=== PATIENT | male | born 1980 | race Caucasian/White ===

== ENCOUNTER 2017-02-19 11:47 | Emergency (ER) | payer OTHER ==
[2017-02-19] MEDS ORDERED: ORPHENADRINE 30 MG/ML 2 ML VIAL IM STA (13:10)
[2017-02-19] MEDS ORDERED: HYDROcodone/APAP 5-325MG 1 EACH TAB PO STA (13:13)
--- NOTE | 2017-02-19 13:18 | ED ---
General Adult HPI - General Chief complaint: Back Pain/Injury Stated complaint: BACK INJURY, [facility] Time Seen by Provider: 02/19/17 13:02 Source: patient, RN notes reviewed Mode of arrival: wheelchair Limitations: no limitations - History of Present Illness Initial comments: This is a 36-year-old male who presents with back pain after turning a 400 pound barrel. Patient states he felt pain in his back as soon as he turned the barrel. Patient states it hurts to stand up straight. Patient states the pain is also made worse in the middle back with flexion of the head. Patient denies any neck pain. Patient states he's been ambulating but this is painful. Patient denies any radicular pain, numbness/tingling/weakness. Patient denies any change in bowel or bladder function or loss of sensation to the saddle area. Patient also states he's had a cough for about a week productive of yellow sputum. Patient also admits to some congestion and mild intermittent headache. Patient also admits to tobacco use. Patient denies any sore throat or fever/chills. Patient denies any shortness of breath. Patient denies any recent chest pain, abdominal pain, nausea/vomiting/diarrhea, hematuria, headache, or visual changes, or any other complaints. - Related Data Previous Rx's Medication Instructions Recorded Cyclobenzaprine [Flexeril] 5 mg PO HS #3 tab 02/19/17 HYDROcodone/APAP 5-325MG [[place] 1 tab PO Q6HR #12 tab 02/19/17 5-325] Allergies Allergy/AdvReac Type Severity Reaction Status Date / Time codeine Allergy Unknown Verified 02/19/17 12:38 Childhood NSAIDS (Non-Steroidal Allergy Swelling Verified 02/19/17 12:38 Anti-Inflamma Penicillins Allergy Unknown Verified 02/19/17 12:38 Childhood Review of Systems ROS Statement: Those systems with pertinent positive or pertinent negative responses have been documented in the HPI. ROS Other: All systems not noted in ROS Statement are negative. Past Medical History Past Medical History: No Reported History History of Any Multi-Drug Resistant Organisms: None Reported Past Surgical History: No Surgical Hx Reported Past Psychological History: No Psychological Hx Reported Smoking Status: Current every day smoker Past Alcohol Use History: None Reported Past Drug Use History: None Reported General Exam - General Exam Comments Initial Comments: General: The patient is awake and alert, in no distress, and does not appear acutely ill. Neck: The neck is supple, there is no tenderness or JVD. Cardiovascular: There is a regular rate and rhythm. No murmur, rub or gallop is appreciated. Respiratory: Faint scattered wheezes. Otherwise lungs are clear to auscultation, respirations are non-labored, breath sounds are equal. No stridor , rales, or rhonchi. Musculoskeletal: Patient is tender to palpation over the midthoracic left side paraspinal muscles. Patient is not tender directly over the thoracic spine, cervical spine or lumbar spine. Patient has full range of motion, strength 5/5 and Sensation intact. Radial pulses 2+ bilaterally. Neurological: A&O x 3. CN II-XII intact, There are no obvious motor or sensory deficits. Coordination appears grossly intact. Speech is normal. Skin: Skin is warm and dry and no rashes or lesions are noted. Psychiatric: Normal mood and affect. Limitations: no limitations Course Vital Signs 02/19/17 12:34 Temperature 97.1 F L Pulse Rate 66 Respiratory 16 Rate Blood Pressure 150/63 O2 Sat by Pulse 95 Oximetry Medical Decision Making - Medical Decision Making This is a well-appearing 36-year-old male who presents with mid back pain after twisting a heavy barrel. On physical exam patient is neurologically intact. Patient's back pain is reproducible. Patient is tender to palpation over the midthoracic left side paraspinal muscles. Patient is not tender directly over the thoracic spine, cervical spine or lumbar spine. Patient has full range of motion, strength 5/5 and Sensation intact. Radial pulses 2+ bilaterally. Faint wheezes heard in bilateral lung freire. Patient is afebrile in the EC. A chest x-ray was done and reviewed showing: No acute cardiopulmonary process. Reported by Dr. Hyman. Patient admits to being a smoker and denies any shortness of breath. X-rays of the thoracic spine were done and reviewed showing: No acute fracture or dislocation is seen in the thoracic spine. Reported by Dr. Hyman. Patient is given Norflex and [place] in the EC. I discussed heating pads and/or ice to the area. I discussed patient will be given a prescription for Flexeril for the next 3 days to take at night. I discussed sedation effects. I discussed Tylenol for pain as patient is ALLERGIC to NSAIDs. I discussed [place] for breakthrough pain. I discussed that [place] has Tylenol in it so that he should watch his dosing of Tylenol if he is going to take [place]. Patient is able to stand and ambulate in the EC. Patient states his pain is improving. I discussed that patient should keep his follow- up appointment with [facility] on Wednesday. I discussed no heavy lifting until pain is improved. I discussed return parameters. Discussed that patient should follow up with PCP in one to 2 days or return to the EC for any worsening symptoms or for any further concerns. Patient was receptive to this plan and patient will be discharged home. Disposition Clinical Impression: Muscle spasm of back Disposition: HOME SELF-CARE Condition: Good Instructions: Acute Low Back Pain (ED) Additional Instructions: Please use Flexeril as prescribed and do not drive or drink alcohol while taking this medication as it can make you drowsy. Please use Tylenol and heating pads for pain. Please do not lift any heavy objects until pain is improved. Please use medication as discussed. Please follow-up with family doctor in the next 2 days of symptoms have not improved. Please return to emergency room if the symptoms increase or worsen or for any other concerns. Prescriptions: Cyclobenzaprine [Flexeril] 5 mg PO HS #3 tab HYDROcodone/APAP 5-325MG [[place] 5-325] 1 tab PO Q6HR #12 tab Referrals: Severino Andre MD [Primary Care Provider] - 1-2 days Time of Disposition: 14:20
--- NOTE | 2017-02-19 13:37 | XR ---
EXAMINATION TYPE: XR chest 2V DATE OF EXAM: 02/19/2017 1:32 PM COMPARISON: 09/20/2013 HISTORY: Chest pain TECHNIQUE: Frontal and lateral views of the chest are obtained. FINDINGS: There is no focal air space opacity. No evidence for pnuemothorax.No pleural effusion. The cardiac silhouette size is within normal limits. The osseous structures are grossly intact. IMPRESSION: 1. No acute cardiopulmonary process.
--- NOTE | 2017-02-19 13:38 | XR ---
EXAMINATION TYPE: XR thoracic spine complete DATE OF EXAM: 02/19/2017 1:32 PM CLINICAL HISTORY: pain TECHNIQUE: Frontal, lateral, and swimmer's view of thoracic spine are obtained. COMPARISON: None. FINDINGS: Thoracic spine show satisfactory alignment without evidence of acute fracture or dislocatio n. Vertebral body heights are preserved. Disc spaces are well preserved. Visualized ribs are unrem arkable. IMPRESSION: No acute fracture or dislocation is seen in the thoracic spine. ICD 10 NO FRACTURE, INIT IAL EVALUATION
[2017-02-19 14:30] VITALS: BP 138/84; PULSE 67; RESP 18; TEMP 98
== END 2017-02-19 14:29 | disposition home or self-care (01) ==
LOC: EC 11:47
DX: M62.830 Muscle spasm of back (principal); R51 Headache; R05 Cough; R09.89 Other specified symptoms and signs involving the circulatory and respiratory systems; F17.200 Nicotine dependence, unspecified, uncomplicated; Z88.0 Allergy status to penicillin; Z88.5 Allergy status to narcotic agent; Z88.6 Allergy status to analgesic agent; X50.9XXA Other and unspecified overexertion or strenuous movements or postures, initial encounter; Y92.69 Other specified industrial and construction area as the place of occurrence of the external cause; Y99.0 Civilian activity done for income or pay
CPT/HCPCS: 71020; 72072; 99283; 96372; J2360

== ENCOUNTER 2018-02-08 16:28 | Emergency (ER) | payer BC, OTHER ==
[2018-02-08] MEDS ORDERED: RX INFO: IV CONTRAST WAS GIVEN 1 EACH MISC MISCELLANE PRN (17:13)
[2018-02-08 17:30] LABS: Basophils # (A) 0.1 k/uL (0-0.2); Basophils % (A) 1 %; Eosinophils # (A) 0.4 k/uL (0-0.7); Eosinophils % (A) 4 %; HCT 45.7 % (39.0-53.0); HGB 15.5 gm/dL (13.0-17.5); Lymphocytes % (A) 19 %; MCV 85.2 fL (80.0-100.0); Mean Platelet Volume 6.9; Monocytes # (A) 0.5 k/uL (0-1.0); Monocytes % (A) 5 %; Neutrophils # (A) 7.2 k/uL (1.3-7.7); Neutrophils % (A) 70 %; Platelet Count 294 k/uL (150-450); RBC 5.36 m/uL (4.30-5.90); WBC 10.2 k/uL (3.8-10.6)
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
--- NOTE | 2018-02-08 18:17 | CT ---
EXAMINATION TYPE: CT facial bones w con DATE OF EXAM: 02/08/2018 COMPARISON: NONE HISTORY: Nasal trauma 3 weeks ago. Possible abscess formation CT DLP: 650 mGycm Automated exposure control for dose reduction was used. CONTRAST: CT scan of the facial bones is performed with IV Contrast, patient injected with 100 mL of Isovue 300 . TECHNIQUE: CT scan of the sinuses is performed without contrast, axial images are obtained, coronal r eformatted images are also reviewed. FINDINGS: There is a comminuted fracture of the maxillary spine with overlying soft tissue swelling. No fluid collection to suggest abscess formation. The nasal bone and nasal septum are intact. Moderat e mucosal thickening is seen of the ethmoid sinuses. Scant mucosal thickening is noted of the maxilla ry sinuses. Scant mucosal thickening is also seen of the sphenoid sinus and frontal sinuses. Right ma stoid air cells are well aerated. Left mastoid air cells are hypoplastic. Lamina Propecia are intact. Evaluation of the intracranial structures is limited. Globes are symmetric. Extraocular muscles are also symmetric. Lenses are in place. Oropharynx and nasopharynx are patent. Parotids and submandibula r glands are symmetric. IMPRESSION: Comminuted fracture of the maxillary spine with overlying soft tissue swelling. No fluid collection t o suggest abscess.
[2018-02-08 19:41] VITALS: BP 134/81; PULSE 63; RESP 18; TEMP 98.6
== END 2018-02-08 19:41 | disposition home or self-care (01) ==
LOC: EC 16:28
DX: S02.402A Zygomatic fracture, unspecified side, initial encounter for closed fracture (principal); L08.9 Local infection of the skin and subcutaneous tissue, unspecified; K08.409 Partial loss of teeth, unspecified cause, unspecified class; F17.200 Nicotine dependence, unspecified, uncomplicated; Z88.0 Allergy status to penicillin; Z88.5 Allergy status to narcotic agent; Z88.6 Allergy status to analgesic agent; X58.XXXA Exposure to other specified factors, initial encounter
CPT/HCPCS: 36415; 85025; 87040; 70487; 99283; Q9967

== ENCOUNTER → 2019-05-30 | Outpatient (CLI) | payer OTHER ==
--- NOTE | 2019-05-30 16:23 | XR ---
EXAMINATION TYPE: XR knee complete LT DATE OF EXAM: 05/30/2019 COMPARISON: NONE HISTORY: 38-year-old male [id number] TECHNIQUE: 3 views FINDINGS: There is severe prepatellar soft tissue swelling. Underlying trace knee joint effusion. Extensor mech anism is intact. No acute fracture, subluxation, or dislocation. IMPRESSION: Marked prepatellar soft tissue swelling suggest contusion or hemorrhagic prepatellar bursitis in the setting of injury. No underlying acute osseous abnormality seen.
== END | disposition home or self-care (01) ==
LOC: RADXRMAIN 12:46
PROVIDERS: ATTEND Emergency Medicine
DX: M79.89 Other specified soft tissue disorders (principal)

== ENCOUNTER 2020-12-31 01:30 | Inpatient (IN) | payer BC ==
[2020-12-31] MEDS ORDERED: NITROGLYCERIN SL TABS 0.4 MG TAB SUBLINGUAL PRN (01:33)
[2020-12-31 01:36] LABS: Glucose,Whole Blood 148 mg/dL (75-99)
[2020-12-31] MEDS ORDERED: ATORVASTATIN 80 MG TAB PO STA (01:37)
[2020-12-31] MEDS ORDERED: HEPARIN SODIUM,PORCINE 5,000 UNIT/ML 1 ML VIAL SQ STA (01:38)
--- NOTE | 2020-12-31 01:38 | ED ---
Chest Pain HPI - General Chief Complaint: Chest Pain Stated Complaint: STEMI Time Seen by Provider: 12/31/20 01:33 Source: patient, EMS Mode of arrival: EMS - History of Present Illness Initial Comments: This patient is a 40-year-old man brought by an os to be evaluated for chest pain. The patient's symptoms started at approximately midnight. He noticed a substernal pressure moderate to severe intensity. Patient also having nausea and dyspnea. EMS was activated and then called and the patient here as ST elevation DC. Patient denies previous history of cardiac disease. Patient does smoke. MD Complaint: chest pain Onset/Timin -: minutes(s) Onset: during rest Pain Location: substernal Pain Radiation: LUE Severity: moderate Quality: heaviness Consistency: constant Improves With: nitroglycerin, medication-other Worsens With: nothing Anginal Symptoms: nausea Treatments Prior to Arrival: nitroglycerin, other - Related Data Previous Rx's Medication Instructions Recorded Cyclobenzaprine [Flexeril] 5 mg PO HS #3 tab 02/19/17 HYDROcodone/APAP 5-325MG [[place] 1 tab PO Q6HR #12 tab 02/19/17 5-325] Clindamycin HCl 300 mg PO Q6HR #40 cap 02/08/18 Sulfamethox-Tmp 800-160Mg [Bactrim 1 each PO Q12HR #20 tab 02/08/18 Ds] Allergies Allergy/AdvReac Type Severity Reaction Status Date / Time aspirin Allergy Unknown Verified 12/31/20 02:03 codeine Allergy Unknown Verified 12/31/20 02:04 Childhood NSAIDS (Non-Steroidal Allergy Swelling Verified 12/31/20 02:04 Anti-Inflamma Penicillins Allergy Unknown Verified 12/31/20 02:04 Childhood Review of Systems ROS Statement: Those systems with pertinent positive or pertinent negative responses have been documented in the HPI. ROS Other: All systems not noted in ROS Statement are negative. Constitutional: Denies: fever, chills Respiratory: Reports: dyspnea. Denies: cough Cardiovascular: Reports: chest pain. Denies: palpitations, edema, syncope Gastrointestinal: Reports: nausea. Denies: abdominal pain, vomiting, diarrhea Genitourinary: Denies: dysuria Musculoskeletal: Denies: back pain Skin: Denies: rash Neurological: Denies: headache, weakness, numbness EKG Findings - EKG Results: EKG: interpreted by ATILIO, sinus rhythm (Rate 60 bpm), normal axis - DC, Pacemaker, Normal: Myocardial infarction: septal DC (acute or recent), anterior DC (acute or recent) Past Medical History Past Medical History: No Reported History History of Any Multi-Drug Resistant Organisms: None Reported Past Surgical History: No Surgical Hx Reported Past Psychological History: No Psychological Hx Reported Smoking Status: Current every day smoker Past Alcohol Use History: None Reported Past Drug Use History: None Reported General Exam General appearance: alert, in no apparent distress Head exam: Present: atraumatic, normocephalic Eye exam: Present: normal appearance. Absent: scleral icterus, conjunctival injection ENT exam: Present: normal oropharynx Neck exam: Present: normal inspection, full ROM Respiratory exam: Present: normal lung sounds bilaterally. Absent: respiratory distress, wheezes, rales, rhonchi, stridor Cardiovascular Exam: Present: regular rate, normal rhythm, normal heart sounds. Absent: systolic murmur, diastolic murmur, rubs, gallop GI/Abdominal exam: Present: soft. Absent: distended, tenderness, guarding, rebound, rigid, mass Extremities exam: Present: normal inspection, normal capillary refill. Absent: pedal edema, calf tenderness Back exam: Present: normal inspection. Absent: CVA tenderness (R), CVA tenderness (L) Neurological exam: Present: alert Skin exam: Present: warm, dry, intact, normal color. Absent: rash Course Vital Signs 12/31/20 01:30 Temperature 97.5 F L Pulse Rate 62 Respiratory 18 Rate Blood Pressure 116/84 O2 Sat by Pulse 99 Oximetry - Reevaluation(s) Reevaluation #1: 12/31/20 01:38 Patient's 40-year-old man brought to have evaluation for chest pain. We did receive a call from EMS describing anterior ST elevation DC. I discussed the case with , covering interventional cardiology and the cath team was activated. Chest Pain MDM - [facility] Patient's 40-year-old man brought by ambulance for chest pain. Patient found to have acute STEMI. pharmaceutical laboratory technician had been activated based on the EMS call, and patient sent to [facility] as soon his personnel had arrived. Critical Care Time Critical Care Time: Yes (30 minutes) Disposition Clinical Impression: ST elevation myocardial infarction (STEMI) Disposition: ADMITTED IP TO THIS HOSP Condition: Serious Is patient prescribed a controlled substance at d/c from ED?: No
[2020-12-31 01:53] LABS: Basophils # (A) 0.1 k/uL (0-0.2); Basophils % (A) 0 %; Eosinophils # (A) 0.3 k/uL (0-0.7); Eosinophils % (A) 2 %; HCT 40.9 % (39.0-53.0); HGB 14.3 gm/dL (13.0-17.5); Lymphocytes # (A) 2.1 k/uL (1.0-4.8); Lymphocytes % (A) 13 %; MCH 30.1 pg (25.0-35.0); MCV 86.1 fL (80.0-100.0); Mean Platelet Volume 6.8; Monocytes # (A) 0.6 k/uL (0-1.0); Monocytes % (A) 4 %; Neutrophils # (A) 13.1 k/uL (1.3-7.7); Neutrophils % (A) 81 %; Platelet Count 226 k/uL (150-450); RBC 4.74 m/uL (4.30-5.90); RDW 12.8 % (11.5-15.5); WBC 16.2 k/uL (3.8-10.6)
[2020-12-31] MEDS ORDERED: VERAPAMIL 2.5 MG/ML 2 ML AMP ONE (02:03)
[2020-12-31] MEDS ORDERED: LIDOCAINE 1% INJ 10MG/ML (20 ML MDV) ONE (02:03)
--- NOTE | 2020-12-31 02:03 | XR ---
EXAM: XR Chest, 1 View CLINICAL HISTORY: ITS.REASON XR Reason: chest pain TECHNIQUE: Frontal view of the chest. COMPARISON: 02/19/2017 FINDINGS: Lungs: Low lung volumes. Diffuse bilateral perihilar opacities. Pleural space: No pleural effusions. No pneumothorax. Heart: Unremarkable. No cardiomegaly. Mediastinum: Unremarkable. Bones/joints: Unremarkable. IMPRESSION: Diffuse bilateral perihilar reticular opacities which may be due to pulmonary edema or small airways infection.
[2020-12-31 02:08] LABS: Albumin 3.9 g/dL (3.5-5.0); Calcium 8.5 mg/dL (8.4-10.2); Potassium 3.8 mmol/L (3.5-5.1); Total Bilirubin 0.4 mg/dL (0.2-1.3); Total Protein 6.5 g/dL (6.3-8.2)
[2020-12-31] MEDS ORDERED: LIDOCAINE 1% INJ 10MG/ML (20 ML MDV) SQ ONE (02:09)
[2020-12-31] MEDS ORDERED: MIDAZOLAM 2 MG/2 ML VIAL IV ONE (02:11)
[2020-12-31] MEDS: VERAPAMIL SYRINGE (5 MG/10 ML) INTRAARTER ONE ×2 (02:11→02:50)
[2020-12-31] MEDS ORDERED: SODIUM CHLORIDE 0.9% 1,000 ML IV ONE (02:12)
[2020-12-31 02:15] LABS: INR 1.1 (<1.2); Prothrombin Time 11.5 sec (9.0-12.0)
[2020-12-31] MEDS ORDERED: BIVALIRUDIN BOLUS 250 MG/50 ML IV ONE (02:21)
[2020-12-31] MEDS ORDERED: BIVALIRUDIN 250 MG in SODIUM CHLORIDE 0.9% 50 ML IV ONE (02:21)
[2020-12-31] MEDS ORDERED: niCARdipine 25 MG/10 ML VIAL ONE (02:26)
[2020-12-31] MEDS ORDERED: NITROGLYCERIN 1000MCG/10ML SYRINGE INTRACORON ONE (02:35)
[2020-12-31] MEDS ORDERED: PRASUGREL 10 MG TAB ONE (02:41)
[2020-12-31] MEDS ORDERED: ASPIRIN 325 MG TAB PO ONE (02:43)
[2020-12-31] MEDS ORDERED: IOPAMIDOL-370 125ML BTL INJ ONE (02:43)
[2020-12-31] MEDS ORDERED: ASPIRIN 325 MG TAB ONE (02:43)
[2020-12-31] MEDS ORDERED: PRASUGREL 10 MG TAB PO ONE (02:43)
[2020-12-31 02:47] LABS: Partial Thromboplastin Time 21.1 sec (22.0-30.0)
[2020-12-31] MEDS ORDERED: IOPAMIDOL-370 100ML BTL INJ ONE (02:49)
[2020-12-31 03:22] LABS: Glucose,Whole Blood 121 mg/dL (75-99)
[2020-12-31] MEDS ORDERED: SODIUM CHLORIDE 0.9% 1,000 ML IV SCH (03:30)
--- NOTE | 2020-12-31 06:38 | CC ---
CARDIAC CATHETERIZATION REPORT DATE OF SERVICE: 12/31/2020 PERFORMING PHYSICIAN: Nitish Sanz MD. PROCEDURE PERFORMED: 1. Selective right and left coronary angiogram. 2. Left heart catheterization. 3. Aspiration thrombectomy from the left anterior descending artery. 4. Successful stenting of the proximal left anterior descending artery using 4.0 x 23 mm Xience drug-eluting stent which was post-dilated using 5 mm balloon with an excellent angiographic result and reduction of stenosis from 100% to 0%. INDICATION: This is a 40-year-old gentleman with smoking, as well as significant family history of coronary artery disease, presented to the emergency department with chest discomfort. He was diagnosed with acute anterior ST-elevation myocardial infarction and because of that an emergent heart catheterization was advised. APPROACH: Right radial artery. COMPLICATION: None. LEVEL OF SEDATION: Moderate with sedation length of 43 minutes. DOOR TO BALLOON: 53 minutes. PROCEDURE DESCRIPTION: After obtaining an informed consent, the patient was brought to the cardiac shop laborer. The right radial artery was cannulated using micropuncture technique, the micropuncture wire passed easily. Then I placed a 6-Bangl[place] sheath at the right radial artery. Selective right and left coronary angiogram performed using JR4 diagnostic for the right coronary artery and JL3.5 guide for the left coronary system. Left heart catheterization was performed using the JR4 catheter which crossed the aortic valve then I did pullback across the valve. The procedure was completed without any complication. SELECTIVE CORONARY ANGIOGRAM: 1. The right coronary artery is a large caliber vessel and is a dominant vessel. The RCA is angiographically normal. Distally bifurcates into PDA and PLV branches both appeared to be angiographically normal. 2. The left main is angiographically normal. It bifurcates into left circumflex, ramus intermedius, and left anterior descending artery. 3. The left circumflex is a large caliber vessel. It is a nondominant vessel and it appeared to be angiographically normal. In the midportion gives rise into a large OM branch which appeared to be angiographically normal. 4. The ramus intermedius is a large caliber vessel and functions as large 1st obtuse marginal branch. The ramus intermedius is angiographically normal. It bifurcates distally and all the branches appeared to be angiographically normal. 5. The LAD: The LAD is a large caliber vessel. The LAD is 100% occluded in the proximal portion with a large thrombus burden. The mid LAD has what seems to be myocardial bridging, which seems to be severe. The LAD distally appeared to be angiographically normal. HEMODYNAMICS: The LVEDP was 24 mmHg without significant gradient across aortic valve. PERCUTANEOUS CORONARY INTERVENTION OF THE LAD: Anticoagulation was initiated using Angiomax. Subsequently, the patient was loaded with 60 mg of Effient. I did engage the left main using JL3.5 guide. I did cross the acute total occlusion of the LAD using a run-through wire. After that I did aspiration thrombectomy from the left anterior descending artery. I was able to extract a thrombus. After that balloon angioplasty was performed using 3.5 x 15 mm balloon before I deployed a 4.0 x 23 mm Xience drug-eluting stent where the stent was positioned under fluoroscopy guidance and deployed under 10 atmospheres for 20 seconds. After that I post-dilated the very proximal portion of the stent using 5 mm balloon. The following angiogram showed good angiographic results and the procedure was completed without any complication. CONCLUSION: 1. Acute anterior ST-elevation myocardial infarction in this gentleman who is a 40- year-old with smoking and significant family history. 2. Acute total occlusion of the proximal left anterior descending artery with a large thrombus burden. 3. Successful stenting of the proximal left anterior descending artery using of 4.0 x 23 mm Xience NOHEMI with an excellent angiographic results. 4. 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 5. Elevated LVEDP at 24 mmHg. POSTPROCEDURE MANAGEMENT: 1. Dual anti-platelet therapy. 2. Aggressive cholesterol control. 3. Risk factor modifications. 4. Smoking cessation. 5. Follow up with the patient. MMODL / IJN: [id number] /
--- NOTE | 2020-12-31 06:41 | CONS ---
CONSULTATION DATE OF SERVICE: 12/31/2020 REASON FOR CONSULTATION: Acute coronary syndrome. HISTORY OF PRESENT ILLNESS: This is a 40-year-old gentleman with smoking and significant family history of coronary artery disease. He was brought to the emergency department by ambulance because of chest discomfort. The patient's discomfort started at 12 o'clock this evening. He describes the discomfort as a pressure in the middle of the chest. Ambulance was called and the EKG was performed and that revealed acute anterior ST-elevation myocardial infarction. Subsequently, the patient was brought emergently to the cardiac laborer tree tapping. A heart catheterization from right radial approach was performed and revealed acute total occlusion of the proximal left anterior descending artery with a large thrombus burden. I did perform successful aspiration thrombectomy and stenting of the left anterior descending artery with good angiographic results and reduction of stenosis from 100% to 0%. The patient also does have severe myocardial bridging involving the mid left anterior descending artery. Also the left ventricular end- diastolic pressure was elevated. The procedure was performed without any complication. By the end of the procedure, the patient was chest pain free. The patient does not have any diabetes or hypertension. He does have very significant family history of coronary artery disease involving his father. PAST MEDICAL HISTORY: 1. Dyslipidemia. 2. Hypertension. 3. Significant history of smoking. FAMILY HISTORY: Significant for severe coronary artery disease. PHYSICAL EXAMINATION: GENERAL APPEARANCE: The patient was a chest pain-free by the end of the procedure. VITALS: Stable also by the end of the procedure. The EKG showed sinus rhythm with still some ST-segment elevation anteriorly and in the anteroseptal leads. CARDIOVASCULAR: Examination shows regular rate and rhythm. RESPIRATORY: Examination shows clear breathing sounds bilaterally. CONCLUSION: 1. Acute anterior ST-elevation myocardial infarction. 2. Status post percutaneous coronary intervention of the left anterior descending. 3. Hypertension. 4. Dyslipidemia. 5. History of smoking. PLAN: 1. Dual anti-platelet therapy. 2. Risk factor modifications. 3. An echocardiogram with Doppler. 4. Fasting lipid profile. 5. Follow up with the patient. MMODL / IJN: [id number] /
[2020-12-31] MEDS: PRASUGREL 10 MG TAB PO SCH (08:44)
[2020-12-31] MEDS: METOPROLOL SUCCINATE (ER) 25 MG TAB.ER.24H PO SCH (08:44)
--- NOTE | 2020-12-31 10:16 | PN ---
PROGRESS NOTE Ilia is a 40-year-old gentleman who was admitted to hospital with acute anterior wall myocardial infarction and underwent emergent cardiac catheterization and angioplasty of LAD. This morning, he is doing well. Stable hemodynamically and is free of cardiac symptoms. Does not have any cardiac arrhythmia. PHYSICAL EXAMINATION: On exam comfortable at rest. Vital signs are stable. There is no jugular venous distention. Chest exam reveals good air entry bilaterally. Heart exam reveals first and second heart sounds. No gallop. No murmur. Abdomen is soft, nontender. Examination of extremities did not reveal any edema. Peripheral pulses are felt. Right radial access site is free of bleeding or hematoma. LABS: His labs show that the troponin is 0.129. I asked them to do another troponin today. Hemoglobin is 14.3. ASSESSMENT: Acute anterior wall myocardial infarction, status post catheterization and angioplasty. PLAN: We will obtain a 2D echo to assess LV function. The patient is on aspirin, Lipitor, Toprol, and Effient, which will be continued. MMODL / IJN: [id number] /
--- NOTE | 2020-12-31 14:00 | ECHOF ---
Referral Reason:Post STEMI MEASUREMENTS -------- HEIGHT: 182.9 cm WEIGHT: 103.4 kg BP: 105/77 RVIDd: 3.7 cm (< 3.3) IVSd: 1.5 cm (0.6 - 1.1) LVIDd: 4.8 cm (3.9 - 5.3) LVPWd: 1.4 cm (0.6 - 1.1) IVSs: 1.5 cm LVIDs: 3.5 cm LVPWs: 2.1 cm LAESV Index (A-L): 21.74 ml/m Ao Diam: 3.0 cm (2.0 - 3.7) AV Cusp: 2.2 cm (1.5 - 2.6) LA Diam: 3.9 cm (2.7 - 3.8) MV EXCURSION: 21.045 mm (> 18.000) MV EF SLOPE: 158 mm/s (70 - 150) EPSS: 0.3 cm MV E Kaden: 0.84 m/s MV DecT: 245 ms MV A Kaden: 0.47 m/s MV E/A Ratio: 1.79 RAP: 5.00 mmHg RVSP: 38.96 mmHg FINDINGS -------- Sinus rhythm. This was a technically adequate study. The left ventricular size is normal. There is moderate concentric left ventricular hypertrophy. O verall left ventricular systolic function is mild-moderately impaired with, an EF between 40 - 45 %. Mid anterior LV wall motion is hypokinetic. Apical anterior LV wall motion is hypokinetic. Ap ical lateral LV wall motion is hypokinetic. Apical septum LV wall motion is hypokinetic. Septal Hypokinesis The right ventricle is mildly enlarged. Normal LA size by volume 22+/-6 ml/m2. The right atrial size is normal. Interatrial and interventricular septum intact. The aortic valve is trileaflet, and appears structurally normal. No aortic stenosis or regurgitation. The mitral valve is normal. Mild mitral regurgitation is present. The tricuspid valve appears structurally normal. Mild tricuspid regurgitation present. There is n o evidence of pulmonary hypertension. The right ventricular systolic pressure, as measured by Doppl er, is 38.96mmHg. Trace/mild (physiologic) pulmonic regurgitation. The aortic root size is normal. The inferior vena cava is mildly dilated. There is no pericardial effusion. CONCLUSIONS -------- 1. There is moderate concentric left ventricular hypertrophy. 2. Overall left ventricular systolic function is mild-moderately impaired with, an EF between 40 - 45 %. 3. Mid anterior LV wall motion is hypokinetic. 4. Apical anterior LV wall motion is hypokinetic. 5. Apical lateral LV wall motion is hypokinetic. 6. Apical septum LV wall motion is hypokinetic. 7. Septal Hypokinesis 8. The right ventricle is mildly enlarged. 9. Normal LA size by volume 22+/-6 ml/m2. 10. The aortic valve is trileaflet, and appears structurally normal. No aortic stenosis or regurgitat ion. 11. Mild mitral regurgitation is present. 12. Mild tricuspid regurgitation present. 13. Trace/mild (physiologic) pulmonic regurgitation. 14. The inferior vena cava is mildly dilated. 15. There is no pericardial effusion. LEGAL PROCESS SPECIALIST: Shena Castro RDCS
[2020-12-31] MEDS: NICOTINE 21MG/24HR PATCH TRANSDERM SCH (16:41)
--- NOTE | 2020-12-31 18:42 | P.HPIM ---
History of Present Illness H&P Date: 12/31/20 Chief Complaint: Chest pain History of presenting complaint: This is a pleasant 40-year-old patient of Dr. dorado. Yesterday patient had gone to play a game of hockey then came back home. Subsequently started off having pressure across the chest. Tired rundown a bit perspiration. He did vomit once. Came back and sat down. Again, pressure across her chest became cold clammy breakdown of the sweat not feeling well nausea vomiting again. Tired rundown. decided to bring the patient to the ER. Patient is having an ST elevation TX in the anterior wall. Taken to the cardiac catheterization lab by Dr. Duron. There was obstruction of the proximal LAD with thrombus. Successful angioplasty stenting LAD question of thrombus was done. This morning sitting up in bed. Tired. No chest pain shortness of breath. at the bedside. Review of systems: GEN.: Tired EYES: None HEENT: None NECK: None RESPIRATORY: [As above CARDIOVASCULAR: [As above GASTROINTESTINAL: None GENITOURINARY: None MUSCULOSKELETAL: None LYMPHATICS: None HEMATOLOGICAL: None PSYCHIATRY: None NEUROLOGICAL: None Past medical history to include: Cardiac catheterization in 2016. Results not known. Social history: Smokes a pack a day for over 20 years. No significant alcohol history. . Employed. Family history: Positive for coronary artery disease in his father Physical examination: VITAL SIGNS: 97.5, 62, 18, 116/84, 99% on 2 L GENERAL: BMI 31, reclining in bed, tired. EYES: Pupils equal. Conjunctiva normal. HEENT: External appearance of nose and ears normal, oral cavity grossly normal. NECK: JVD not raised; masses not palpable. HEART: First and second heart sounds are normal; no edema. LUNGS:[ Respiratory rate normal; mild wheezing. ABDOMEN: Soft, nontender, liver spleen not palpable, no masses palpable. PSYCH: [Alert and oriented x3; mood and affect tired. NEUROLOGICAL: Cranial nerves grossly intact; no facial asymmetry, power and sensation grossly intact. LYMPHATICS: No lymph nodes palpable in the axilla and neck INVESTIGATIONS, reviewed in the clinical context: White count 16.2 hemoglobin 14.3 platelets 226 potassium 3.8 creatinine 1.29 Troponin I 0.129, 57.5 EKG tracing personally reviewed by me-ST elevation in anterior leads Chest x-ray film personally reviewed by me-portable/questionable fluid prominence Assessment: -Acute ST elevation myocardial infarction with emergent cardiac catheterization -Coronary artery disease with stent to LAD -Chronic nicotine dependence patient cigarette smoker -COPD in a current smoker -Suspect underlying CK D with a creatinine of 1.29. Hydrate the patient. Send off a UA and renal ultrasound. Patient in the ICU. Follow with cardiology. Smoke cessation counseling: This was done with the patient. Nicotine patch is being given. More than 3 minutes was spent for this Past Medical History Past Medical History: Chest Pain / Angina History of Any Multi-Drug Resistant Organisms: None Reported Past Surgical History: Heart Catheterization Additional Past Surgical History / Comment(s): Heart catheterization in 2016. No stents. Past Anesthesia/Blood Transfusion Reactions: No Reported Reaction Past Psychological History: No Psychological Hx Reported Smoking Status: Current every day smoker Past Alcohol Use History: None Reported Past Drug Use History: None Reported Medications and Allergies Home Medications Medication Instructions Recorded Confirmed Type Calcium Carbonate [Tums] 1,500 mg PO ONETIME PRN 12/31/20 12/31/20 History Allergies Allergy/AdvReac Type Severity Reaction Status Date / Time aspirin Allergy Unknown Verified 12/31/20 08:13 codeine Allergy Unknown Verified 12/31/20 08:13 Childhood NSAIDS (Non-Steroidal Allergy Swelling Verified 12/31/20 08:13 Anti-Inflamma Penicillins Allergy Unknown Verified 12/31/20 08:13 Childhood Physical Exam Vitals: Vital Signs Temp Pulse Resp BP Pulse Ox 12/31/20 09:30 59 L 14 123/91 96 12/31/20 09:00 65 16 111/81 97 12/31/20 08:30 59 L 14 108/83 95 12/31/20 08:00 97.9 F 68 19 125/88 96 12/31/20 07:30 68 15 115/78 96 12/31/20 07:00 61 16 105/77 95 12/31/20 06:30 66 16 122/79 95 12/31/20 06:00 65 18 120/81 95 12/31/20 05:30 66 16 118/80 94 L 12/31/20 05:00 72 16 118/82 94 L 12/31/20 04:45 64 16 113/76 94 L 12/31/20 04:30 69 14 128/78 92 L 12/31/20 04:15 66 12 117/80 94 L 12/31/20 04:00 64 16 92/65 94 L 12/31/20 03:45 61 20 111/77 96 12/31/20 03:30 97.7 F 65 17 119/86 97 12/31/20 02:03 100 12/31/20 01:30 97.5 F L 62 18 116/84 99 Intake and Output 12/30/20 12/31/20 12/31/20 22:59 06:59 14:59 Intake Total 346 225 Output Total 610 0 Balance -264 225 Intake: IV 271 225 Sodium Chloride 0.9% 1, 150 225 000 ml @ 75 mls/hr IV . [id number] [facility] Rx#:[id number] Intake, IV Titration 75 Amount Sodium Chloride 0.9% 1, 75 000 ml @ 75 mls/hr IV . [id number] [facility] Rx#:[id number] Output: Urine 610 0 Other: Voiding Method Urinal Weight 103.8 kg Results CBC & Chem 7: 12/31/20 01:38 12/31/20 01:38 Labs: Abnormal Lab Results - Last 24 Hours (Table) 12/31/20 12/31/20 12/31/20 Range/Units 01:34 01:38 01:38 WBC 16.2 H (3.8-10.6) k/uL Neutrophils # 13.1 H (1.3-7.7) k/uL APTT 21.1 L (22.0-30.0) sec Creatinine (0.66-1.25) mg/dL Glucose (74-99) mg/dL POC Glucose (mg/dL) 148 H (75-99) mg/dL Troponin I (0.000-0.034) ng/mL 12/31/20 12/31/20 12/31/20 Range/Units 01:38 01:38 03:20 WBC (3.8-10.6) k/uL Neutrophils # (1.3-7.7) k/uL APTT (22.0-30.0) sec Creatinine 1.29 H (0.66-1.25) mg/dL Glucose 174 H (74-99) mg/dL POC Glucose (mg/dL) 121 H (75-99) mg/dL Troponin I 0.129 H* (0.000-0.034) ng/mL 12/31/20 Range/Units 09:25 WBC (3.8-10.6) k/uL Neutrophils # (1.3-7.7) k/uL APTT (22.0-30.0) sec Creatinine (0.66-1.25) mg/dL Glucose (74-99) mg/dL POC Glucose (mg/dL) (75-99) mg/dL Troponin I 57.500 H* (0.000-0.034) ng/mL Thrombosis Risk Factor Assmnt - Choose All That Apply Each Factor Represents 1 point: Acute TX, Age 41-60 years Other Risk Factors: No Other congenital or acquired thrombophilia - If yes, enter type in comment: No Thrombosis Risk Factor Assessment Total Risk Factor Score: 2 Thrombosis Risk Factor Assessment Level: Low Risk
[2020-12-31] MEDS: ATORVASTATIN 80 MG TAB PO SCH (20:08)
--- NOTE | 2020-12-31 21:02 | US ---
EXAMINATION TYPE: US kidneys/renal and bladder DATE OF EXAM: 12/31/2020 COMPARISON: NONE CLINICAL HISTORY: assess for CKD. Assess for CKD. EXAM MEASUREMENTS: Right Kidney: 12.6 x 5.9 x 7.0 cm Left Kidney: 12.2 x 5.8 x 6.7 cm Right Kidney: Measures slightly enlarged. Hyperechoic focus seen measuring 0.5 x 0.8 x 0.5 and sugges tive of nonobstructing calculus Left Kidney: Measures slightly enlarged versus upper limits of normal. No hydronephrosis or masses se en Bladder: Appears anechoic. Bilateral Jets seen: Yes IMPRESSION: No bilateral hydronephrosis or renal mass seen. Probable nonobstructing right renal calculus.
[2020-12-31 21:24] LABS: Appearance,Urine Clear (Clear); Bilirubin,Urine Negative (Negative); Blood,Urine Small (Negative); Color,Urine Yellow; Glucose,Urine (UA) Negative (Negative); Ketones,Urine Negative (Negative); Leukocyte Esterase,Urine Negative (Negative); Mucus,Urine Rare /hpf; Nitrite,Urine Negative (Negative); Protein,Urine Negative (Negative); RBC,Urine 2 /hpf (0-5); Specific Gravity,Urine 1.018 (1.001-1.035); Urobilinogen,Urine <2.0 mg/dL (<2.0); WBC,Urine 1 /hpf (0-5)
[2021-01-01] MEDS: PRASUGREL 10 MG TAB PO SCH (08:25)
[2021-01-01] MEDS: METOPROLOL SUCCINATE (ER) 25 MG TAB.ER.24H PO SCH (08:25)
[2021-01-01] MEDS: NICOTINE 21MG/24HR PATCH TRANSDERM SCH (10:53)
[2021-01-01 11:16] LABS: Potassium 4.4 mmol/L (3.5-5.1)
[2021-01-01 11:17] LABS: African American GFR (CKD) >90 (>60 ml/min/1.73 sqM); Anion Gap 7 mmol/L; Blood Urea Nitrogen 14 mg/dL (9-20); Calcium 9.1 mg/dL (8.4-10.2); Carbon Dioxide 27 mmol/L (22-30); Chloride 103 mmol/L (98-107); Glucose 87 mg/dL (74-99); Non-African American GFR(CKD) 84 (>60 ml/min/1.73 sqM); Sodium 137 mmol/L (137-145)
[2021-01-01] MEDS: ASPIRIN 81 MG PO SCH (16:03)
--- NOTE | 2021-01-01 16:04 | P.PN ---
Subjective Progress Note Date: 01/01/21 HISTORY OF PRESENT ILLNESS: 40-year-old male was admitted to the hospital secondary to STEMI. He is status post cardiac catheterization with PCI to the LAD. Patient examined at the bedside. He denies chest pain or pressure. Denies shortness of breath. Vital signs are stable. Echocardiogram completed revealing ejection fraction 40-45%. PHYSICAL EXAM: VITAL SIGNS: Reviewed. GENERAL: Well-developed in no acute distress. NECK: Supple. No JVD or thyromegaly LUNGS: Respirations even and unlabored. Lungs essentially clear to auscultation bilaterally. HEART: Regular rate and rhythm. S1 and S2 heard. EXTREMITIES: Normal range of motion. No clubbing or cyanosis. Peripheral pulses intact. No lower extremity edema. Right radial cath site with pulse pr esent ASSESSMENT: Acute anterior STEMI, status post PCI to LAD Hypertension Hyperlipidemia Nicotine dependence PLAN: Continue current cardiac medications Add lisinopril 2.5 mg daily Smoking cessation recommended Anticipate discharge home tomorrow if patient remains stable Nurse practitioner note has been reviewed by physician. Signing provider agrees with the documented findings, assessment, and plan of care. Objective - Vital Signs Vital signs: Vital Signs Temp 98.2 F 01/01/21 15:55 Pulse 76 01/01/21 15:55 Resp 16 01/01/21 15:55 BP 116/72 01/01/21 15:55 Pulse Ox 96 01/01/21 15:55 Intake & Output 12/31/20 01/01/21 01/01/21 18:59 06:59 18:59 Intake Total 225 540 125 Output Total 0 200 Balance 225 340 125 Weight 98.1 kg Intake: IV 225 Sodium Chloride 0.9% 1, 225 000 ml @ 75 mls/hr IV . [id number] [facility] Rx#:[id number] Oral 540 125 Output: Urine 0 200 Other: Voiding Method Toilet Toilet Toilet Urinal Urinal Urinal # Voids 1 2 4 - Labs CBC & Chem 7: 12/31/20 01:38 01/01/21 10:12 Labs: Abnormal Lab Results - Last 24 Hours (Table) 12/31/20 Range/Units 20:52 Urine Blood Small H (Negative) Urine Mucus Rare H (None) /hpf
[2021-01-01] MEDS: ATORVASTATIN 80 MG TAB PO SCH (20:34)
--- NOTE | 2021-01-01 22:57 | P.PN ---
Progress Note - Text Progress Note Date: 01/01/21 Chief Complaint: Chest pain History of presenting complaint: This is a pleasant 40-year-old patient of Dr. dorado. Yesterday patient had gone to play a game of hockey then came back home. Subsequently started off having pressure across the chest. Tired rundown a bit perspiration. He did vomit once. Came back and sat down. Again, pressure across her chest became cold clammy breakdown of the sweat not feeling well nausea vomiting again. Tired rundown. decided to bring the patient to the ER. Patient is having an ST elevation RI in the anterior wall. Taken to the cardiac catheterization lab by Dr. Duron. There was obstruction of the proximal LAD with thrombus. Successful angioplasty stenting LAD question of thrombus was done. This morning sitting up in bed. Tired. No chest pain shortness of breath. at the bedside. Today-laying in bed. Comfortable. Has been out of bed. No chest pain or shortness of breath. Review of systems: Was done for constitutional, cardiovascular, GI, pulmonary. relevant finding as above Active Medications Aspirin (Aspirin 81 Mg) 81 mg PO DAILY [facility] Last Admin: 01/01/21 16:03 Dose: Not Given Documented by: Atorvastatin Calcium (Atorvastatin 80 Mg Tab) 80 mg PO HS [facility] Last Admin: 01/01/21 20:34 Dose: 80 mg Documented by: Lisinopril (Lisinopril 2.5 Mg Tab) 2.5 mg PO DAILY [facility] Metoprolol Succinate (Metoprolol Succinate (Er) 25 Mg Tab.Er.24h) 25 mg PO DAILY [facility] Last Admin: 01/01/21 08:25 Dose: 25 mg Documented by: Nicotine (Nicotine 21mg/24hr Patch) 1 patch TRANSDERM DAILY [facility] Last Admin: 01/01/21 10:53 Dose: Not Given Documented by: Nitroglycerin (Nitroglycerin Sl Tabs 0.4 Mg Tab) 0.4 mg SUBLINGUAL Q5M PRN PRN Reason: Chest Pain Prasugrel (Prasugrel 10 Mg Tab) 10 mg PO DAILY [facility] Last Admin: 01/01/21 08:25 Dose: 10 mg Documented by: Past medical history to include: Cardiac catheterization in 2016. Results not known. Social history: Smokes a pack a day for over 20 years. No significant alcohol history. . Employed. Family history: Positive for coronary artery disease in his father Physical examination: VITAL SIGNS: 98.2, 76, 16, 116/72, 96% room air GENERAL: BMI 31, reclining in bed, comfortable EYES: Pupils equal. Conjunctiva normal. NECK: JVD not raised; masses not palpable. HEART: First and second heart sounds are normal; no edema. LUNGS:[ Respiratory rate normal; mild wheezing. ABDOMEN: Soft, nontender, liver spleen not palpable, no masses palpable. PSYCH: [Alert and oriented x3; mood and affect tired. INVESTIGATIONS, reviewed in the clinical context: January 01: Potassium 4.4 creatinine 1.09 UA negative for protein Renal ultrasound-nonobstructing right renal calculi. No hydronephrosis White count 16.2 hemoglobin 14.3 platelets 226 potassium 3.8 creatinine 1.29 Troponin I 0.129, 57.5 EKG tracing personally reviewed by me-ST elevation in anterior leads Chest x-ray film personally reviewed by me-portable/questionable fluid prominence Assessment and plan: -Acute ST elevation myocardial infarction with emergent cardiac catheterization -Coronary artery disease with stent to LAD. On aspirin, Lipitor, Zestril, Toprol-XL, Effient -Chronic nicotine dependence patient cigarette smoker. Patient counseled. Nicotine patch. -COPD in a current smoker -Suspect underlying CK D with a creatinine of 1.29. Repeat creatinine in the morning.. Hopefully discharge tomorrow. Discussed with the patient.
[2021-01-02] MEDS: METOPROLOL SUCCINATE (ER) 25 MG TAB.ER.24H PO SCH (08:51)
[2021-01-02] MEDS: PRASUGREL 10 MG TAB PO SCH (08:52)
[2021-01-02] MEDS: NICOTINE 21MG/24HR PATCH TRANSDERM SCH (08:52)
[2021-01-02] MEDS: ASPIRIN 81 MG PO SCH ×2 (08:52→11:25)
[2021-01-02 08:56] VITALS: BP 118/72; PULSE 78; RESP 20; TEMP 97.8
--- NOTE | 2021-01-02 13:30 | P.PN ---
Subjective Progress Note Date: 01/02/21 HISTORY OF PRESENT ILLNESS: 40-year-old male was admitted to the hospital secondary to STEMI. He is status post cardiac catheterization with PCI to the LAD. Patient examined at the bedside. He denies chest pain or pressure. Denies shortness of breath. Vital signs are stable. PHYSICAL EXAM: VITAL SIGNS: Reviewed. GENERAL: Well-developed in no acute distress. NECK: Supple. No JVD or thyromegaly LUNGS: Respirations even and unlabored. Lungs essentially clear to auscultation bilaterally. HEART: Regular rate and rhythm. S1 and S2 heard. EXTREMITIES: Normal range of motion. No clubbing or cyanosis. Peripheral pulses intact. No lower extremity edema. Right radial cath site with pulse present ASSESSMENT: Acute anterior STEMI, status post PCI to LAD Hypertension Hyperlipidemia Nicotine dependence PLAN: Continue current cardiac medications Smoking cessation recommended Patient is stable for discharge home today from a cardiac perspective Nurse practitioner note has been reviewed by physician. Signing provider agrees with the documented findings, assessment, and plan of care. Objective - Vital Signs Vital signs: Vital Signs Temp 97.8 F 01/02/21 08:00 Pulse 78 01/02/21 08:00 Resp 20 01/02/21 08:00 BP 118/72 01/02/21 08:00 Pulse Ox 95 01/02/21 08:00 Intake & Output 01/01/21 01/02/21 01/02/21 18:59 06:59 18:59 Intake Total 365 10 720 Balance 365 10 720 Weight 98.1 kg Intake: IV 10 0.9 10 Oral 365 720 Other: Voiding Method Toilet Toilet Urinal # Voids 4 1 - Labs CBC & Chem 7: 12/31/20 01:38 01/01/21 10:12
--- NOTE | 2021-01-02 23:27 | P.DS ---
Providers Date of admission: 12/31/20 01:53 Expected date of discharge: 01/02/21 Attending physician: Blaise Carter Consults: 12/31/20 01:33 Consult Physician Stat Consulting Provider: [facility] Consult Reason/Comments: STEMI ACTIVATION COMPLETE Do you want consulting provider notified?: Yes Primary care physician: Severino Dorado [facility] Course: Chief Complaint: Chest pain History of presenting complaint: This is a pleasant 40-year-old patient of Dr. dorado. Yesterday patient had gone to play a game of hockey then came back home. Subsequently started off having pressure across the chest. Tired rundown a bit perspiration. He did vomit once. Came back and sat down. Again, pressure across her chest became cold clammy breakdown of the sweat not feeling well nausea vomiting again. Tired rundown. decided to bring the patient to the ER. Patient is having an ST elevation IA in the anterior wall. Taken to the cardiac catheterization lab by Dr. Duron. There was obstruction of the proximal LAD with thrombus. Successful angioplasty stenting LAD question of thrombus was done. Today-up and about. No chest pain or short of breath. Cleared by currently. Patient did tolerate his aspirin today. No side effects. Consultants: [facility] Past medical history to include: Cardiac catheterization in 2016. Results not known. Social history: Smokes a pack a day for over 20 years. No significant alcohol history. . Employed. Family history: Positive for coronary artery disease in his father Physical examination: VITAL SIGNS: 97.8, 78, 20, 118/72, 95% room air GENERAL: BMI 31, reclining in bed, comfortable EYES: Pupils equal. Conjunctiva normal. NECK: JVD not raised; masses not palpable. HEART: First and second heart sounds are normal; no edema. LUNGS:[ Respiratory rate normal; mild wheezing. ABDOMEN: Soft, nontender, liver spleen not palpable, no masses palpable. PSYCH: [Alert and oriented x3; mood and affect tired. INVESTIGATIONS, reviewed in the clinical context: January 01: Potassium 4.4 creatinine 1.09 UA negative for protein Renal ultrasound-nonobstructing right renal calculi. No hydronephrosis White count 16.2 hemoglobin 14.3 platelets 226 potassium 3.8 creatinine 1.29 Troponin I 0.129, 57.5 EKG tracing personally reviewed by me-ST elevation in anterior leads Chest x-ray film personally reviewed by me-portable/questionable fluid prominence Assessment and plan: -Acute ST elevation myocardial infarction with emergent cardiac catheterization -Coronary artery disease with stent to LAD. On aspirin, Lipitor, Zestril, Toprol-XL, Effient -Chronic nicotine dependence patient cigarette smoker. Patient counseled. Nicotine patch. -COPD in a current smoker -Suspect underlying CK D with a creatinine of 1.09. Repeat creatinine as an outpatient Disposition: Home Plan - Discharge Summary Discharge Rx Participant: No New Discharge Prescriptions: New Prasugrel [Effient] 10 mg PO DAILY #30 tab Nicotine 21Mg/24Hr Patch [Habitrol] 1 patch TRANSDERM DAILY #14 patch Atorvastatin [Lipitor] 80 mg PO HS #30 tab Nitroglycerin Sl Tabs [Nitrostat] 0.4 mg SUBLINGUAL Q5M PRN #30 tab PRN Reason: Chest Pain Metoprolol Succinate (ER) [Toprol XL] 25 mg PO DAILY #30 tab.er.24h lisinopriL [Zestril] 2.5 mg PO HS #30 tab Continue Calcium Carbonate [Tums] 1,500 mg PO ONETIME PRN PRN Reason: Chest Pain/GI Upset Discharge Medication List Calcium Carbonate [Tums] 1,500 mg PO ONETIME PRN 12/31/20 [History] Atorvastatin [Lipitor] 80 mg PO HS #30 tab 01/02/21 [Rx] Metoprolol Succinate (ER) [Toprol XL] 25 mg PO DAILY #30 tab.er.24h 01/02/21 [Rx] Nicotine 21Mg/24Hr Patch [Habitrol] 1 patch TRANSDERM DAILY #14 patch 01/02/21 [Rx] Nitroglycerin Sl Tabs [Nitrostat] 0.4 mg SUBLINGUAL Q5M PRN #30 tab 01/02/21 [Rx] Prasugrel [Effient] 10 mg PO DAILY #30 tab 01/02/21 [Rx] lisinopriL [Zestril] 2.5 mg PO HS #30 tab 01/02/21 [Rx] Follow up Appointment(s)/Referral(s): Nitish Sanz MD [STAFF PHYSICIAN] - 1 Week Severino Dorado MD [Primary Care Provider] - 01/08/21 3:00 pm (with [facility]) Patient Instructions/Handouts: *Surgery [facility] - After Heart Catheterization - Brake Engineer Instructions Discharge Disposition: HOME SELF-CARE
== END 2021-01-02 12:57 | disposition home or self-care (01) | DRG 247 ==
LOC: EC 01:30 → 2SICU 01:53 → 3SCARD 20:41
PROVIDERS: ADMIT Hospitalist; ATTEND Hospitalist
PROC: 4A023N7 Measurement of Cardiac Sampling and Pressure, Left Heart, Percutaneous Approach (ICD-10-PCS; 2020-12-31)
PROC: B2111ZZ Fluoroscopy of Multiple Coronary Arteries using Low Osmolar Contrast (ICD-10-PCS; 2020-12-31)
PROC: 027034Z Dilation of Coronary Artery, One Artery with Drug-eluting Intraluminal Device, Percutaneous Approach (ICD-10-PCS; principal; 2020-12-31 01:47)
PROC: 02C03ZZ Extirpation of Matter from Coronary Artery, One Artery, Percutaneous Approach (ICD-10-PCS; 2020-12-31 01:47)
DX: I21.09 ST elevation (STEMI) myocardial infarction involving other coronary artery of anterior wall (principal); Q24.5 Malformation of coronary vessels; J44.9 Chronic obstructive pulmonary disease, unspecified; I25.10 Atherosclerotic heart disease of native coronary artery without angina pectoris; F17.210 Nicotine dependence, cigarettes, uncomplicated; E78.5 Hyperlipidemia, unspecified; I12.9 Hypertensive chronic kidney disease with stage 1 through stage 4 chronic kidney disease, or unspecified chronic kidney disease; N18.9 Chronic kidney disease, unspecified; Z71.6 Tobacco abuse counseling; Z88.6 Allergy status to analgesic agent; Z88.5 Allergy status to narcotic agent; Z88.0 Allergy status to penicillin; Z82.49 Family history of ischemic heart disease and other diseases of the circulatory system
CPT/HCPCS: 36415; 71045; 76770; 80048; 80053; 81001; 84484; 85025; 85610; 85730; 93005; 93306; 93458; 96372; 99291

== ENCOUNTER 2021-01-03 23:11 | Emergency (ER) | payer BC ==
[2021-01-03 23:17] VITALS: RESP 18; TEMP 98.4
--- NOTE | 2021-01-03 23:58 | ED ---
Recheck HPI - General Chief Complaint: Skin/Abscess/Foreign Body Stated Complaint: Forearm swelling, post stent Time Seen by Provider: 01/03/21 23:26 Source: patient, RN notes reviewed, old records reviewed Mode of arrival: ambulatory Limitations: no limitations - History of Present Illness Initial Comments: This is a 40-year-old male DF for evaluation patient presents for evaluation of right upper extremity swelling and edema redness and erythema, patient had right upper extremity heart catheterization with stent placement as well as right forearm IV. Patient presents for evaluation regards to swelling and redness in between those 2 sites. Otherwise no complaints of chest pain or shortness of breath. No history of blood clots, no fevers MD Complaint: wound re-check (edema and redness between two iv sites) -: hour(s) Returns Today for: persistent/worsening pain related to initial visit Symptoms Since Prior Visit: worsening pain, worsening swelling, worsening redness Context: other (symptoms) Associated Symptoms: none - Related Data Home Medications Medication Instructions Recorded Confirmed Calcium Carbonate [Tums] 1,500 mg PO ONETIME PRN 12/31/20 12/31/20 Previous Rx's Medication Instructions Recorded Atorvastatin [Lipitor] 80 mg PO HS #30 tab 01/02/21 Metoprolol Succinate (ER) [Toprol 25 mg PO DAILY #30 tab.er.24h 01/02/21 XL] Nicotine 21Mg/24Hr Patch [Habitrol] 1 patch TRANSDERM DAILY #14 patch 01/02/21 Nitroglycerin Sl Tabs [Nitrostat] 0.4 mg SUBLINGUAL Q5M PRN #30 tab 01/02/21 Prasugrel [Effient] 10 mg PO DAILY #30 tab 01/02/21 lisinopriL [Zestril] 2.5 mg PO HS #30 tab 01/02/21 Allergies Allergy/AdvReac Type Severity Reaction Status Date / Time aspirin Allergy Unknown Verified 01/03/21 23:17 codeine Allergy Unknown Verified 01/03/21 23:17 Childhood NSAIDS (Non-Steroidal Allergy Swelling Verified 01/03/21 23:17 Anti-Inflamma Penicillins Allergy Unknown Verified 01/03/21 23:17 Childhood Review of Systems ROS Statement: Those systems with pertinent positive or pertinent negative responses have been documented in the HPI. ROS Other: All systems not noted in ROS Statement are negative. Past Medical History Past Medical History: Chest Pain / Angina History of Any Multi-Drug Resistant Organisms: None Reported Past Surgical History: Heart Catheterization Additional Past Surgical History / Comment(s): Heart catheterization in 2016. No stents. cardiac stent placed 12-31-2020 Past Anesthesia/Blood Transfusion Reactions: No Reported Reaction Past Psychological History: No Psychological Hx Reported Smoking Status: Former smoker Past Alcohol Use History: Rare Past Drug Use History: None Reported General Exam Limitations: no limitations General appearance: alert, in no apparent distress Head exam: Present: atraumatic, normocephalic, normal inspection Eye exam: Present: normal appearance, PERRL, EOMI. Absent: scleral icterus, conjunctival injection, periorbital swelling ENT exam: Present: normal exam, mucous membranes moist Neck exam: Present: normal inspection. Absent: tenderness, meningismus, lymphadenopathy Respiratory exam: Present: normal lung sounds bilaterally. Absent: respiratory distress, wheezes, rales, rhonchi, stridor Cardiovascular Exam: Present: regular rate, normal rhythm, normal heart sounds. Absent: systolic murmur, diastolic murmur, rubs, gallop, clicks GI/Abdominal exam: Present: soft, normal bowel sounds. Absent: distended, tenderness, guarding, rebound, rigid Extremities exam: Present: normal inspection, full ROM, tenderness (right forearm, area of erythema and edema, warmth), normal capillary refill. Absent: pedal edema, joint swelling, calf tenderness Back exam: Present: normal inspection Neurological exam: Present: alert, oriented X3, CN II-XII intact Psychiatric exam: Present: normal affect, normal mood Skin exam: Present: warm, dry, intact, normal color. Absent: rash Course Vital Signs 01/03/21 23:13 Temperature 98.4 F Pulse Rate 69 Respiratory 18 Rate Blood Pressure 117/76 O2 Sat by Pulse 95 Oximetry - Reevaluation(s) Reevaluation #1: 01/04/21 01:16 Medical record is reviewed Reevaluation #2: 01/04/21 01:16 Patient is in no significant pain or distress no shortness of breath or chest pain Reevaluation #3: 01/04/21 01:16 Patient is informed results questions answered, patient is ALLERGIC to NSAIDs, encouraged to elevate alternate warm and cold treatment and patient can be discharged home Medical Decision Making - Medical Decision Making 40 male positive right upper extremity, forearm thrombophlebitis. Likely iatrogenic secondary to IV start. Patient presents since, can be discharged home - Radiology Data Radiology results: report reviewed (Ultrasound does show thrombophlebitis right forearm), image reviewed Disposition Clinical Impression: Superficial thrombophlebitis of right upper extremity Disposition: HOME SELF-CARE Condition: Good Instructions (If sedation given, give patient instructions): Superficial Thrombophlebitis (ED) Is patient prescribed a controlled substance at d/c from ED?: No Referrals: Severino Andre MD [Primary Care Provider] - 1-2 days
[2021-01-04] MEDS ORDERED: SODIUM CHLORIDE 0.9% 1,000 ML IV STA (00:27)
--- NOTE | 2021-01-04 01:04 | US ---
EXAM: US Duplex Right Upper Extremity Veins CLINICAL HISTORY: ITS.REASON US Reason: DVT RUE TECHNIQUE: Real-time duplex ultrasound scan of the right upper extremity veins integrating B-mode two-dimensional vascular structure, Doppler spectral analysis, color flow Doppler imaging and compression. COMPARISON: No relevant prior studies available. FINDINGS: Deep veins: Unremarkable. No DVT in the internal jugular, subclavian, axillary, brachial, ulnar, or radial veins. The veins demonstrate normal color flow, are normally compressible, with normal phasic flow and/or augmentation response. Superficial veins: Superficial thrombophlebitis of the cephalic vein at the antecubital fossa. Basilic vein is patent. Soft tissues: Soft tissue edema IMPRESSION: 1. Superficial thrombophlebitis of the cephalic vein at the antecubital fossa. 2. No acute DVT.
[2021-01-04] MEDS ORDERED: CEPHALEXIN 500 MG CAP PO STA (01:13)
[2021-01-04] MEDS ORDERED: cefTRIAXone IN SWFI 1,000 MG/10 ML SYRINGE IVP STA (01:13)
[2021-01-04] MEDS ORDERED: CEPHALEXIN 500MG STARTER PACK 4 CAP BTL PO STA (01:13)
[2021-01-04 01:29] LABS: Basophils # (A) 0.1 k/uL (0-0.2); Basophils % (A) 1 %; Eosinophils # (A) 0.4 k/uL (0-0.7); Eosinophils % (A) 4 %; HCT 41.2 % (39.0-53.0); HGB 14.3 gm/dL (13.0-17.5); Lymphocytes # (A) 2.4 k/uL (1.0-4.8); Lymphocytes % (A) 25 %; MCH 29.5 pg (25.0-35.0); MCHC 34.7 g/dL (31.0-37.0); Mean Platelet Volume 6.9; Monocytes # (A) 0.6 k/uL (0-1.0); Monocytes % (A) 6 %; Neutrophils # (A) 5.8 k/uL (1.3-7.7); Neutrophils % (A) 62 %; Platelet Count 210 k/uL (150-450); RBC 4.85 m/uL (4.30-5.90); RDW 12.7 % (11.5-15.5); WBC 9.3 k/uL (3.8-10.6)
[2021-01-04 01:40] LABS: ALT 34 U/L (4-49); AST 42 U/L (17-59); African American GFR (CKD) >90 (>60 ml/min/1.73 sqM); Alkaline Phosphatase 80 U/L (38-126); Anion Gap 8 mmol/L; Blood Urea Nitrogen 21 mg/dL (9-20); C Reactive Protein 34.7 mg/L (<10.0); Carbon Dioxide 26 mmol/L (22-30); Chloride 102 mmol/L (98-107); Creatine Kinase 183 U/L (55-170); Glucose 108 mg/dL (74-99); INR 0.9 (<1.2); Magnesium 2.1 mg/dL (1.6-2.3); Non-African American GFR(CKD) 87 (>60 ml/min/1.73 sqM); Partial Thromboplastin Time 24.7 sec (22.0-30.0); Phosphorus 4.7 mg/dL (2.5-4.5); Prothrombin Time 10.2 sec (9.0-12.0); Sodium 136 mmol/L (137-145); Total Bilirubin 0.4 mg/dL (0.2-1.3); Total Protein 6.8 g/dL (6.3-8.2)
[2021-01-04 03:12] VITALS: BP 119/79; PULSE 60
== END 2021-01-04 02:50 | disposition home or self-care (01) ==
LOC: EC 23:11
DX: I80.8 Phlebitis and thrombophlebitis of other sites (principal); Z88.0 Allergy status to penicillin; Z88.5 Allergy status to narcotic agent; Z88.6 Allergy status to analgesic agent; Z95.5 Presence of coronary angioplasty implant and graft; Z87.891 Personal history of nicotine dependence
CPT/HCPCS: 36415; 93005; 80053; 82550; 83605; 83735; 84100; 84484; 85025; 85610; 85730; 86140; 87040; 93971; 99284; 96374; J0696

== ENCOUNTER → 2023-10-27 | Outpatient (CLI) | payer BC ==
[2023-10-27 15:29] LABS: ALT 46 U/L (10-49); AST 32 U/L (14-35); LDL Cholesterol,Calculated 63.3 mg/dL (0.0-131.0)
== END | disposition home or self-care (01) ==
LOC: LABWHC1 09:26
PROVIDERS: ATTEND Internal Medicine Interventional Cardiology
DX: E78.2 Mixed hyperlipidemia (principal)
CPT/HCPCS: 36415; 80061; 84450; 84460